=== PATIENT | female | born 1960 | race Caucasian/White ===

== ENCOUNTER 2018-01-28 14:49 | Inpatient (IN) | payer OTHER ==
[2018-01-28 16:45] LABS: Absolute Lymphocytes (CBC) 1.9 K/uL (0.7-4.9); Absolute Monocytes 0.7 K/uL (0.1-1.3); Absolute Neutrophil 3.5 K/uL (1.8-8.0); Albumin 3.5 g/dL (3.4-5.0); Basophils % 0.5 % (0-1.3); Bilirubin Total 0.3 mg/dL (0.2-1.0); Eosinophils % 5.2 % (0-4.4); Hematocrit 39.2 % (36.0-45.0); Lymphocytes % 28.9 % (15.3-44.8); MCH 30.7 pg (27.0-35.0); MCV 93.2 fL (80-100); MPV 8.5 fL (7.6-11.3); Monocytes % 11.4 % (3.3-12.3); Potassium 3.9 mmol/L (3.5-5.1); Protein, Total 8.4 g/dL (6.4-8.2); RBC Red Blood Cell Count 4.21 M/uL (3.86-4.86)
[2018-01-28 17:16] VITALS: BMI 75.5
[2018-01-28] MEDS ORDERED: PNEUMOCOCCAL VACCINE 0.5 ML IMVAC ONE (18:00)
[2018-01-28 18:52] LABS: Urine Appearance CLEAR; Urine Blood NEGATIVE (NEG); Urine Color DK YELLOW; Urine Glucose NEGATIVE (NEG); Urine Protein TRACE (NEG); Urine Specific Gravity >=1.030 (1.005-1.030); Urine pH 5.5 (5.0-7.0)
[2018-01-28] MEDS: VANCOMYCIN 2 GM in NA CHLORIDE 0.9% 500 ML IVPB SCH (18:52)
[2018-01-28 19:09] LABS: Urine Bilirubin NEG (NEG); Urine Microscopic Reflex ORDER UMIC
[2018-01-28 19:13] LABS: Urine Amorphous Sediment 1+ /HPF (NONE SEEN); Urine Bacteria <20 /HPF (<20); Urine Culture Reflex Order NOT NEEDED; Urine RBC <5 /HPF (NONE SEEN)
[2018-01-28] MEDS: ENOXAPARIN 30 MG/0.3 ML SQ SCH (21:31)
[2018-01-29] MEDS ORDERED: HYDROCODONE/APAP 5/325 MG TAB PO PRN (07:11)
[2018-01-29] MEDS: ENOXAPARIN 30 MG/0.3 ML SQ SCH (08:05)
[2018-01-29] MEDS: DILTIAZEM HCL 120 MG SR CAP PO SCH (08:05)
[2018-01-29] MEDS: HYDROCODONE/APAP 5/325 MG TAB PO PRN ×2 (08:06→17:31)
[2018-01-29] MEDS: FLUOXETINE 20 MG CAP PO SCH (08:12)
[2018-01-29] MEDS ORDERED: DILTIAZEM HCL 240 MG PO SCH (09:00)
[2018-01-29] MEDS: VANCOMYCIN 2 GM in NA CHLORIDE 0.9% 500 ML IVPB SCH (17:31)
--- NOTE | 2018-01-29 22:58 | HP ---
Date of Admission: 01/28/2018 Chief Complaint: Pain, redness right leg. History Of Present Illness: A 57-year-old female who has longstanding bilateral lymphedema and multi ple admissions for her cellulitis. Had increased pain in the leg for which she took antibiotic, cevallos eulogio because of worsening of pain she was brought to the office when she was found to have extensive c ellulitis of the right leg. The patient is admitted for IV vancomycin therapy in view of her failure to respond to oral antibiotics. Past Medical History: Positive for chronic lymphedema of bilateral legs, hypertension, depression, o steoarthritis. Family History: Diabetes present. Personal History: Nonsmoker. Home Medicines: Please refer to the chart. Review of Systems: The patient denied any chest pain or shortness of breath. Physical Examination: General: Revealed a 57-year-old female. Vital Signs: Normal. HEENT: Negative. Neck: Supple. JVD negative. Chest: Clear. Heart: Regular. Abdomen: Pendulous, nontender. Extremities: Diffuse redness starting from lower thigh to the ankle with the skin folds. There is no vesiculation. There is no drainage. Laboratory Data: White count normal. Assessment: 1.Cellulitis, not responding to oral antibiotics. 2.Chronic lymphedema. 3.Hypertension. 4.Depression. 5.Osteoarthritis. Plan: IV vancomycin, Lovenox. LOVE/ISAAC Voice ID: [id number]
[2018-01-30] MEDS: DILTIAZEM HCL 120 MG SR CAP PO SCH (08:47)
[2018-01-30] MEDS: FLUOXETINE 20 MG CAP PO SCH (08:48)
[2018-01-30] MEDS: ENOXAPARIN 30 MG/0.3 ML SQ SCH (08:48)
[2018-01-30] MEDS: HYDROCODONE/APAP 5/325 MG TAB PO PRN ×2 (11:08→23:41)
[2018-01-30] MEDS: VANCOMYCIN 2 GM in NA CHLORIDE 0.9% 500 ML IVPB SCH (17:05)
[2018-01-31] MEDS: DILTIAZEM HCL 120 MG SR CAP PO SCH (08:07)
[2018-01-31] MEDS: FLUOXETINE 20 MG CAP PO SCH (08:08)
[2018-01-31] MEDS: ENOXAPARIN 30 MG/0.3 ML SQ SCH (08:08)
[2018-01-31] MEDS: HYDROCODONE/APAP 5/325 MG TAB PO PRN ×2 (11:57→18:21)
[2018-01-31] MEDS: VANCOMYCIN 2 GM in NA CHLORIDE 0.9% 500 ML IVPB SCH ×2 (18:20→19:00)
--- NOTE | 2018-01-31 18:57 | PN ---
Date of Progress Note: 01/30/2018 The patient is afebrile. There is still significant erythema and tenderness of the leg. The patient , however, is afebrile. The patient will be continued on the same line of management. LOVE/ISAAC Voice ID: [id number] Report ID: [id number]
--- NOTE | 2018-01-31 23:30 | PN ---
The patient's leg still looks red; however, she is afebrile. I asked her to ambulate and elevate the leg in addition to the IV antibiotic therapy. The patient's blood cultures are negative. She has s ome growth in the urine; however, she does not have any symptoms, so she would not be getting treated . LOVE/ISAAC Voice ID: [id number] Report ID: [id number]
[2018-02-01] MEDS: HYDROCODONE/APAP 5/325 MG TAB PO PRN ×2 (05:41→16:24)
[2018-02-01] MEDS: ENOXAPARIN 30 MG/0.3 ML SQ SCH (09:46)
[2018-02-01] MEDS: FLUOXETINE 20 MG CAP PO SCH (09:46)
[2018-02-01] MEDS: DILTIAZEM HCL 120 MG SR CAP PO SCH (09:46)
[2018-02-01] MEDS: VANCOMYCIN 2 GM in NA CHLORIDE 0.9% 500 ML IVPB SCH (12:30)
--- NOTE | 2018-02-01 22:55 | RAD REPORT ---
EXAM DESCRIPTION: RAD - Chest Single View - 02/01/2018 10:48 pm CLINICAL HISTORY: PICC Placement COMPARISON: No comparisonsNo comparisons FINDINGS: Portable chest was obtained following placement of a right upper extremity PICC line. The catheter tip projects over the SVC..
[2018-02-02 01:27] VITALS: O2SAT 95
--- NOTE | 2018-02-02 02:40 | PN ---
The patient's leg still looks red and very likely the patient is going to need prolonged IV antibioti c course. This was explained to the patient. I already had consultation with the social scientist to a rrange for outpatient IV antibiotic and a PICC line. As soon as these are done, she will be discharg ed for outpatient IV antibiotic therapy. LOVE/ISAAC Voice ID: [id number] Report ID: [id number]
[2018-02-02] MEDS: VANCOMYCIN 2 GM in NA CHLORIDE 0.9% 500 ML IVPB SCH (05:24)
[2018-02-02] MEDS: FLUOXETINE 20 MG CAP PO SCH (08:58)
[2018-02-02] MEDS: DILTIAZEM HCL 120 MG SR CAP PO SCH (08:58)
[2018-02-02] MEDS: ENOXAPARIN 30 MG/0.3 ML SQ SCH (08:59)
[2018-02-02] MEDS: HYDROCODONE/APAP 5/325 MG TAB PO PRN (10:28)
[2018-02-03] MEDS: VANCOMYCIN 2 GM in NA CHLORIDE 0.9% 500 ML IVPB SCH (00:32)
[2018-02-03] MEDS: DILTIAZEM HCL 120 MG SR CAP PO SCH (08:51)
[2018-02-03] MEDS: FLUOXETINE 20 MG CAP PO SCH (08:52)
[2018-02-03] MEDS: ENOXAPARIN 30 MG/0.3 ML SQ SCH (08:52)
[2018-02-03 08:53] VITALS: BP 149/73
[2018-02-03 08:58] VITALS: TEMP 98.6
[2018-02-03] MEDS ORDERED: VANCOMYCIN 2.25 GM in NA CHLORIDE 0.9% 500 ML IVPB SCH (18:00)
--- NOTE | 2018-03-07 19:23 | DS ---
Date of Discharge: 02/03/2018 Final Diagnoses: 1.Cellulitis, right leg. 2.Chronic lymphedema. 3.Hypertension. 4.Depression. 5.Osteoarthritis. Hospital Course: This patient was admitted because of failure of oral antibiotic for cellulitis of t he right leg. The patient is known to have recurrent cellulitis due to her lymphedema. The patient after admission was started on vancomycin and Lovenox and she showed improvement over the next severa l days with decreased swelling, redness and pain. She was discharged on oral antibiotic on 8 to have outpatient followup. Laboratory Data: Please refer to the chart. LOVE/ISAAC Voice ID: [id number] Report ID: [id number]
== END 2018-02-03 11:43 | disposition home health service (06) | DRG 603 ==
LOC: 2ND 15:04
PROVIDERS: ADMIT Internal Medicine; ATTEND Internal Medicine
PROC: 02HV33Z Insertion of Infusion Device into Superior Vena Cava, Percutaneous Approach (ICD-10-PCS; principal; 2018-02-01)
DX: L03.115 Cellulitis of right lower limb (principal); I89.0 Lymphedema, not elsewhere classified; I10 Essential (primary) hypertension; F32.9 Major depressive disorder, single episode, unspecified; M19.90 Unspecified osteoarthritis, unspecified site; Z23 Encounter for immunization
CPT/HCPCS: 36415; 71045; 80053; 80202; 81003; 81015; 85025; 87040; 87077; 87086; 87088; 87186; 87205; 90670; J1650

== ENCOUNTER 2018-10-11 09:59 | Inpatient (IN) | payer OTHER ==
[2018-10-11] MEDS ORDERED: VANCOMYCIN 2 GM in NA CHLORIDE 0.9% 500 ML IVPB SCH (11:00)
[2018-10-11 11:07] LABS: Absolute Lymphocytes (CBC) 1.8 K/uL (0.7-4.9); Absolute Monocytes 0.5 K/uL (0.1-1.3); Absolute Neutrophil 3.5 K/uL (1.8-8.0); Basophils % 0.5 % (0-1.3); Eosinophils % 5.9 % (0-4.4); Hematocrit 42.5 % (36.0-45.0); MPV 8.3 fL (7.6-11.3); Monocytes % 7.4 % (3.3-12.3); RBC Red Blood Cell Count 4.59 M/uL (3.86-4.86)
[2018-10-11 11:24] LABS: Albumin 3.8 g/dL (3.4-5.0); Bilirubin Total 0.3 mg/dL (0.2-1.0); Potassium 3.8 mmol/L (3.5-5.1)
[2018-10-11 12:08] LABS: Urine Appearance CLEAR; Urine Blood NEGATIVE (NEG); Urine Color DK YELLOW; Urine Glucose NEGATIVE (NEG); Urine Protein 1+ (NEG); Urine Specific Gravity >=1.030 (1.005-1.030); Urine pH 5.5 (5.0-7.0)
[2018-10-11 12:12] LABS: Urine Bilirubin 1+ (NEG); Urine Microscopic Reflex ORDER UMIC
[2018-10-11 12:26] LABS: Urine Bacteria <20 /HPF (<20); Urine Culture Reflex Order NOT NEEDED; Urine Mucus HEAVY /HPF (NONE SEEN); Urine RBC <5 /HPF (NONE SEEN)
[2018-10-11 12:27] LABS: Calcium Oxalate Crystals- Ur MANY (NONE SEEN)
[2018-10-11] MEDS ORDERED: INFLUENZA VACCINE (for 3y+) 0.5 ML DOSE IMVAC ONE (14:00)
[2018-10-11] MEDS: ENOXAPARIN 40 MG/0.4 ML SQ SCH (16:30)
[2018-10-12] MEDS: VANCOMYCIN 2 GM in NA CHLORIDE 0.9% 500 ML IVPB SCH ×2 (05:22→22:22)
--- NOTE | 2018-10-12 05:28 | HP ---
Date of Admission: 10/11/2018 Chief Complaint: Fever, redness, swelling, right leg. History Of Present Illness: A 58-year-old female, who is known to have severe bilateral lymphedema, who had multiple episodes of cellulitis, was brought to the office as her oral antibiotics, in the fo rm of doxycycline and clindamycin, were not helping. She was found to have extensive cellulitis of t he right leg with lymphedema. The patient is admitted for IV antibiotic therapy. Past Medical History: Positive for depression, osteoarthritis, and hypertension. Family History: Diabetes present. Personal History: Nonsmoker. Allergies: NO KNOWN ALLERGIES. Home Medicines: Cardizem, Mobic, Prozac, doxycycline, and clindamycin. Review of Systems: The patient denied any chest pain or shortness of breath. Physical Examination: Vital Signs: Revealed a 58-year-old female with normal vital signs. HEENT: Negative. Neck: Supple. JVD negative. Chest: Clear. Heart: Regular. Abdomen: Pendulous, nontender. Extremities: Bilateral lymphedema noted. There is induration and redness of the right upper leg as well as lower thigh. Range of motion of knee is normal. Assessment: 1.Cellulitis, not responding to oral antibiotics. 2.Hypertension. 3.Osteoarthritis. 4.Lymphedema. 5.Depression. Plan: The patient is started on vancomycin. Her home medications, Prozac and Cardizem given. She i s given DVT prophylaxis with Lovenox. LOVE/ISAAC Voice ID: [id number]
[2018-10-12] MEDS: FLUOXETINE 20 MG CAP PO SCH (08:37)
[2018-10-12] MEDS: DILTIAZEM HCL 120 MG SR CAP PO SCH (08:38)
[2018-10-12] MEDS: ENOXAPARIN 40 MG/0.4 ML SQ SCH (16:50)
--- NOTE | 2018-10-12 21:54 | PN ---
The patient is doing slightly better today. She is afebrile. She still has considerable induration and redness of the right thigh and right leg. In view of response, she will be continued on vancomyc in. LOVE/ISAAC Voice ID: [id number] Report ID: [id number]
[2018-10-13] MEDS: DILTIAZEM HCL 120 MG SR CAP PO SCH (08:17)
[2018-10-13] MEDS: FLUOXETINE 20 MG CAP PO SCH (08:17)
[2018-10-13] MEDS: ENOXAPARIN 40 MG/0.4 ML SQ SCH (17:12)
[2018-10-13] MEDS: VANCOMYCIN 2 GM in NA CHLORIDE 0.9% 500 ML IVPB SCH (17:12)
[2018-10-14] MEDS: FLUOXETINE 20 MG CAP PO SCH (08:22)
[2018-10-14] MEDS: DILTIAZEM HCL 120 MG SR CAP PO SCH (08:22)
[2018-10-14] MEDS: VANCOMYCIN 2 GM in NA CHLORIDE 0.9% 500 ML IVPB SCH (11:09)
[2018-10-14 11:39] VITALS: O2SAT 98
[2018-10-14] MEDS: ENOXAPARIN 40 MG/0.4 ML SQ SCH (17:26)
[2018-10-15 05:18] VITALS: BMI 66.8
[2018-10-15] MEDS: VANCOMYCIN 2 GM in NA CHLORIDE 0.9% 500 ML IVPB SCH (05:38)
[2018-10-15] MEDS: DILTIAZEM HCL 120 MG SR CAP PO SCH (09:38)
[2018-10-15] MEDS: FLUOXETINE 20 MG CAP PO SCH (09:38)
[2018-10-15 12:21] VITALS: BP 160/60; TEMP 97.4
--- NOTE | 2018-11-08 03:40 | DS ---
Date of Discharge: 10/15/2018 Final Diagnoses: 1.Cellulitis right leg, not responding to oral antibiotics. 2.Hypertension. 3.Lymphedema. 4.Osteoarthritis. 5.Depression. Hospital Course: A 58-year-old female who was on oral antibiotics for her cellulitis and lymphedema. The patient however was not improving. At this point, the patient was admitted for IV antibiotic t herapy. After admission, the patient received IV vancomycin. She showed improvement over the next 3 days with decreased swelling, redness and induration. The patient was discharged on 10/15 to contin ue oral antibiotics. While she was in the hospital, she was given her regular medications of Prozac and Cardizem. She rec eived Lovenox for DVT prophylaxis. LOVE/ISAAC Voice ID: [id number] Report ID: [id number]
== END 2018-10-15 12:40 | disposition home or self-care (01) | DRG 603 ==
LOC: 4TH 10:06
PROVIDERS: ADMIT Internal Medicine; ATTEND Internal Medicine
DX: L03.115 Cellulitis of right lower limb (principal); I89.0 Lymphedema, not elsewhere classified; I10 Essential (primary) hypertension; M19.90 Unspecified osteoarthritis, unspecified site; F32.9 Major depressive disorder, single episode, unspecified
CPT/HCPCS: 36415; 80053; 80202; 81003; 81015; 85025; 87040; 87086; 87088; J1650

== ENCOUNTER 2019-04-19 10:26 | Inpatient (IN) | payer OTHER ==
[2019-04-19 12:36] VITALS: BMI 74.2
[2019-04-19 12:56] LABS: Absolute Lymphocytes (CBC) 1.8 K/uL (0.7-4.9); Basophils % 0.6 % (0-1.3); Hematocrit 38.6 % (36.0-45.0); Lymphocytes % 30.8 % (15.3-44.8); MPV 8.4 fL (7.6-11.3); RBC Red Blood Cell Count 4.19 M/uL (3.86-4.86)
[2019-04-19 13:18] LABS: Albumin 3.7 g/dL (3.4-5.0); Bilirubin Total 0.3 mg/dL (0.2-1.0); Potassium 4.4 mmol/L (3.5-5.1); Protein, Total 8.5 g/dL (6.4-8.2)
[2019-04-19 13:22] LABS: Urine Appearance CLOUDY; Urine Blood NEGATIVE (NEG); Urine Color DK YELLOW; Urine Glucose NEGATIVE (NEG); Urine Protein TRACE (NEG); Urine Specific Gravity >=1.030 (1.005-1.030); Urine Urobilinogen 0.2 mg/dL (0.2-1.0); Urine pH 5.5 (5.0-7.0)
[2019-04-19 13:26] LABS: Urine Bilirubin 1+ (NEG); Urine Microscopic Reflex ORDER UMIC
[2019-04-19 13:47] LABS: Urine Bacteria <20 /HPF (<20); Urine Culture Reflex Order NOT NEEDED; Urine Mucus MOD /HPF (NONE SEEN); Urine RBC NONE SEEN /HPF (NONE SEEN)
[2019-04-19] MEDS ORDERED: VANCOMYCIN 2 GM in NA CHLORIDE 0.9% 500 ML IVPB SCH (14:00)
--- NOTE | 2019-04-19 17:10 | RAD REPORT ---
EXAM DESCRIPTION: RAD - Chest Single View - 04/19/2019 5:02 pm CLINICAL HISTORY: Picc line placement COMPARISON: Chest Single View dated 03/10/2019; Chest Single View dated 02/23/2019; Chest Single View dated 02/22/2019; Chest Single View dated 12/19/2018Chest Single View dated 02/01/2018Chest Single View d ated 02/01/2018 FINDINGS: Portable chest was obtained following placement of a right upper extremity PICC line. The catheter tip projects over the SVC..
[2019-04-19] MEDS: VANCOMYCIN 2 GM in NA CHLORIDE 0.9% 500 ML IVPB SCH (17:27)
[2019-04-19] MEDS: ENOXAPARIN 30 MG/0.3 ML SQ SCH (17:36)
[2019-04-19] MEDS ORDERED: ALBUTEROL SULFATE NEB PRN (19:38)
--- NOTE | 2019-04-19 21:50 | HP ---
Date of Admission: 04/19/2019 Chief Complaint: Pain, right leg. History Of Present Illness: A 58-year-old female who is known to have severe bilateral lymphedema an d multiple episodes of cellulitis, had evidence of cellulitis. She tried antibiotic by mouth for a w [place]. However, because of lack of improvement, she was brought to the office. In view of failure of oral antibiotic, patient is admitted for IV antibiotic therapy with vancomycin. There is no history of chest pain or shortness of breath. Past Medical History: Positive for bilateral lymphedema, hypertension, depression, osteoarthritis. Family History: Diabetes, hypertension. Personal History: Nonsmoker. Home Medications: Please refer to the chart. Review of Systems: No history of chest pain or shortness of breath. Physical Examination: General: Revealed a 58-year-old female, morbidly obese. Vital Signs: Normal. HEENT: Negative. Neck: Supple. JVD negative. Chest: Clear. Heart: Regular. Abdomen: Pendulous. Extremities: Bilateral lymphedema. There is a large area of redness involving the posterior thigh a nd calf area. There is no vesiculation or lymphangitis. Assessment: 1.Cellulitis, right leg. 2.Bilateral lymphedema. 3.Hypertension. 4.Depression. Plan: IV vancomycin. Restart home medicines. LOVE/ISAAC Voice ID: [id number]
[2019-04-20] MEDS: DILTIAZEM HCL 180 MG SR CAP PO SCH (10:24)
[2019-04-20] MEDS: FLUOXETINE 20 MG CAP PO SCH (10:24)
[2019-04-20] MEDS: VANCOMYCIN 2 GM in NA CHLORIDE 0.9% 500 ML IVPB SCH (14:04)
[2019-04-20 14:38] VITALS: O2SAT 100
[2019-04-20] MEDS: ENOXAPARIN 30 MG/0.3 ML SQ SCH (17:38)
[2019-04-21] MEDS: DILTIAZEM HCL 180 MG SR CAP PO SCH (08:54)
[2019-04-21] MEDS: FLUOXETINE 20 MG CAP PO SCH (08:54)
--- NOTE | 2019-04-21 13:10 | PN ---
Subjective: Patient's leg looks a little bit better. She is afebrile. She is still unable to walk in the room because of throbbing sensation. The patient will be continued on IV vancomycin. LOVE/ISAAC Voice ID: [id number] Report ID: [id number]
[2019-04-21] MEDS: VANCOMYCIN 2 GM in NA CHLORIDE 0.9% 500 ML IVPB SCH (14:29)
[2019-04-21] MEDS: ENOXAPARIN 30 MG/0.3 ML SQ SCH (17:20)
[2019-04-22] MEDS ORDERED: VANCOMYCIN 2 GM in NA CHLORIDE 0.9% 500 ML IVPB SCH (08:00)
[2019-04-22] MEDS: DILTIAZEM HCL 180 MG SR CAP PO SCH (09:06)
[2019-04-22] MEDS: FLUOXETINE 20 MG CAP PO SCH (09:06)
[2019-04-22] MEDS: ENOXAPARIN 30 MG/0.3 ML SQ SCH (15:55)
[2019-04-22 16:25] VITALS: BP 145/61; TEMP 98
--- NOTE | 2019-04-25 05:01 | DS ---
Date of Discharge: 04/22/2019 Final Diagnoses: 1.Cellulitis, right leg. 2.Chronic lymphedema bilateral. 3.Hypertension. 4.Depression. Hospital Course: This patient has severe chronic bilateral lymphedema. She has recurrent cellulitis . Patient tried oral antibiotic in the form of Bactrim and clindamycin for a week, however, there wa s no improvement and she was brought to the office. At this point because of failure of oral antibio tic, she was started on vancomycin and she was given her regular medication as well as Lovenox. Juliane ent showed improvement over the next 3 days with decreased swelling and redness. She was discharged home to have oral antibiotics administered. Laboratory Data: White count was normal. Blood cultures; no growth. LOVE/ISAAC Voice ID: [id number] Report ID: [id number]
== END 2019-04-22 16:39 | disposition home or self-care (01) | DRG 603 ==
LOC: 4TH 11:37
PROVIDERS: ADMIT Internal Medicine; ATTEND Internal Medicine
PROC: 02HV33Z Insertion of Infusion Device into Superior Vena Cava, Percutaneous Approach (ICD-10-PCS; principal; 2019-04-19)
DX: L03.115 Cellulitis of right lower limb (principal); I89.0 Lymphedema, not elsewhere classified; I10 Essential (primary) hypertension; F32.9 Major depressive disorder, single episode, unspecified
CPT/HCPCS: 36415; 71045; 80053; 80202; 81001; 81003; 81015; 82565; 85025; 87040; 87086; 87088; J1650

== ENCOUNTER 2019-07-26 17:49 | Emergency (ER) | payer OTHER ==
[2019-07-26] MEDS ORDERED: FENTANYL CITR 100 MCG/2 ML ONE ×2 (18:59→21:23)
[2019-07-26] MEDS ORDERED: KETOROLAC 30 MG/ML INJ ONE (18:59)
--- NOTE | 2019-07-26 21:19 | ER ---
Nurse's Notes [facility] Name: Gisella Low Age: 59 yrs Sex: Female : 1960 Arrival Date: 07/26/2019 Time: 17:51 Bed 16 Private MD: Tavo Ruiz R Diagnosis: Pain in left leg;Urinary tract infection, site not specified Presentation: 07/26 18:02 Presenting complaint: Patient states: "I have lymphedema in both of my legs. I have aj1 severe pain in my left leg. I've taken tramadol, hydrocodone, Tylenol and none of its helping" Patient denies any recent injury to the left leg. Transition of care: patient was not received from another setting of care. Onset of symptoms was July 26, 2019. Risk Assessment: Do you want to hurt yourself or someone else? Patient reports no desire to harm self or others. Initial Sepsis Screen: Does the patient meet any 2 criteria? No. Patient's initial sepsis screen is negative. Does the patient have a suspected source of infection? No. Patient's initial sepsis screen is negative. Care prior to arrival: None. 18:02 Method Of Arrival: Wheelchair aj1 18:02 Acuity: JOVANY 3 aj1 Triage Assessment: 18:05 General: Appears in no apparent distress. uncomfortable, Behavior is calm, cooperative, aj1 appropriate for age. Pain:. Pain: Complains of pain in left leg Pain currently is 6 out of 10 on a pain scale. Neuro: Level of Consciousness is awake, alert, obeys commands. Cardiovascular: Patient's skin is warm and dry. Respiratory: Airway is patent Respiratory effort is even, unlabored, Respiratory pattern is regular, symmetrical. Historical: - Allergies: 18:05 No Known Allergies; aj1 - Home Meds: 18:05 Cardizem CD 360 mg Oral cp24 1 cap once daily [Active]; Mobic 7.5 mg oral tab 1 tab aj1 once daily [Active]; Prozac 20 mg Oral cap 1 cap once daily [Active]; - PMHx: 18:05 Hypertension; lymphedema; aj1 - PSHx: 18:05 Tonsillectomy; Cholecystectomy; aj1 - Immunization history:: Flu vaccine is not up to date. - Social history:: Smoking status: Patient/guardian denies using tobacco. - Ebola Screening: : Patient denies travel to an Ebola-affected area in the 21 days before illness onset. Screenin:50 Abuse screen: Denies threats or abuse. Nutritional screening: No deficits noted. em Tuberculosis screening: No symptoms or risk factors identified. Fall Risk None identified. Assessment: 18:55 General: Appears in no apparent distress. comfortable, Behavior is calm, cooperative, em Denies fever. Pain: Complains of pain in left knee Pain radiates to left sanchez Pain currently is 4 out of 10 on a pain scale. Neuro: Level of Consciousness is awake, alert, obeys commands, Oriented to person, place, time, situation, Appropriate for age. Cardiovascular: Capillary refill < 3 seconds Patient's skin is warm and dry. Respiratory: Airway is patent Respiratory effort is even, unlabored, Respiratory pattern is regular, symmetrical. Derm: Skin is intact, Skin is dry, Skin is pink, Skin temperature is warm. Musculoskeletal: Range of motion: intact in all extremities, Swelling present in right leg and left leg. 19:22 General: Appears in no apparent distress. uncomfortable, Behavior is calm, cooperative, jd3 appropriate for age. Pain: Complains of pain in left leg Quality of pain is described as aching. Neuro: Level of Consciousness is awake, alert, obeys commands, Oriented to person, place, time, situation. Cardiovascular: Capillary refill < 3 seconds Patient's skin is warm and dry. Respiratory: Airway is patent Respiratory effort is even, unlabored, Respiratory pattern is regular, symmetrical. GI: No signs and/or symptoms were reported involving the gastrointestinal system. : No signs and/or symptoms were reported regarding the genitourinary system. EENT: No signs and/or symptoms were reported regarding the EENT system. Derm: Skin is intact, Skin is dry, Skin is normal, Skin temperature is warm. Musculoskeletal: Circulation, motion, and sensation intact. Range of motion: limited in left leg Swelling present in right leg and left leg. 20:49 Reassessment: Patient appears in no apparent distress at this time. Patient and/or jd3 family updated on plan of care and expected duration. Pain level reassessed. Patient is alert, oriented x 3, equal unlabored respirations, skin warm/dry/pink. assisted to restroom. pt reporting some relief from pain medication. 21:50 Reassessment: Patient appears in no apparent distress at this time. Patient and/or jd3 family updated on plan of care and expected duration. Pain level reassessed. Patient is alert, oriented x 3, equal unlabored respirations, skin warm/dry/pink. reported understanding of discharge instructions. Vital Signs: 18:05 BP 142 / 75; Pulse 68; Resp 18; Temp 97.2; Pulse Ox 96% on R/A; Weight 198.22 kg (R); aj1 Height 5 ft. 6 in. (167.64 cm) (R); 20:50 Pulse 69; Resp 18 S; Pulse Ox 97% on R/A; jd3 18:05 Body Mass Index 70.53 (198.22 kg, 167.64 cm) aj1 ED Course: 17:51 Patient arrived in ED. rg4 17:51 Tavo Ruiz MD is Private Physician. rg4 18:00 [facility] snw 18:00 Angel Bolton MD is Attending Physician. snw 18:03 Triage completed. aj1 18:05 Arm band placed on Patient placed in waiting room, Patient notified of wait time. aj1 18:41 Deepak Clark LVN is Primary Nurse. em 18:50 Patient has correct armband on for positive identification. Bed in low position. Call em light in reach. Side rails up X2. Adult w/ patient. 19:21 Primary Nurse role handed off by Deepak Clark LVN jd3 19:21 Campos Sharma RN is Primary Nurse. jd3 21:02 US Extremity Venous W Compression Gagan In Process Unspecified. EDMS 21:17 Tavo Ruiz MD is Referral Physician. snw 21:51 No provider procedures requiring assistance completed. Patient did not have IV access jd3 during this emergency room visit. Administered Medications: 19:02 Drug: TORadol 30 mg Route: IM; Site: left deltoid; em 19:30 Follow up: Response: No adverse reaction jd3 21:34 Drug: fentaNYL (PF) 50 mcg Route: IM; Site: right deltoid; jd3 21:50 Follow up: Response: Medication administered at discharge.; RASS: Alert and Calm (0) jd3 21:34 Not Given (Patient Refused; pt reported having an allergy): Doxycycline 100 mg PO once jd3 21:34 Drug: Clindamycin 300 mg Route: PO; jd3 21:49 Follow up: Response: Medication administered at discharge. jd3 Outcome: 21:18 Discharge ordered by . emmanuel 21:51 Discharged to home via wheelchair, with family. jd3 21:51 Condition: stable 21:51 Discharge instructions given to patient, family, Instructed on discharge instructions, follow up and referral plans. medication usage, Demonstrated understanding of instructions, follow-up care, medications, Prescriptions given X 2. 21:52 Patient left the ED. jd3 Addendum: 07/30/2019 07:38 Addendum: Culture Results: Positive urine culture. Bacteria is resistant to, has s s intermediate sensitivity, or is not tested against prescribed antibiotics. Report given to KAI for further evaluation and then to zookeeper for follow up with patient. 08/02/2019 16:00 Addendum: Culture Results: Phone call Attempt #1 pt did not answer, left voice mail. i w Signatures: Dispatcher [employer] María Pollard RN RN aj1 Magali Borjas, HARM REDUCTION WORKER-C HARM REDUCTION WORKER-[employer] Deepak Clark RN RN Denia Mariano RN RN Jody Valladares RN RN ss Garcia, Rubi rg4 Davies, Jonathon, RN RN jd3 Corrections: (The following items were deleted from the chart) 07/26 20:51 19:22 Musculoskeletal: Circulation, motion, and sensation intact. Range of motion: jd3 limited in left leg Swelling present in left leg jd3 21:50 21:49 Response: Medication administered at discharge. jd3 jd3
--- NOTE | 2019-07-26 21:19 | EDPHYS ---
Physician Documentation [facility] Name: Gisella Low Age: 59 yrs Sex: Female : 1960 Arrival Date: 07/26/2019 Time: 17:51 Bed 16 Private MD: Tavo Ruiz R ED Physician Angel Bolton HPI: 07/26 21:26 This 59 yrs old Female presents to ER via Wheelchair with complaints of Leg snw Pain. 21:26 The patient presents with pain, that is acute. The complaints affect the from left knee snw down to foot, pt states it does not feel like her neuropathy or her osteoarthritis. Context: The problem was sustained at home, resulted from an unknown cause, the patient can partially bear weight, can ambulate using a cane. Onset: The symptoms/episode began/occurred suddenly, 2 day(s) ago, and became persistent. Associated signs and symptoms: The patient has no apparent associated signs or symptoms. Treatment prior to arrival includes: as noted. Severity of symptoms: At their worst the symptoms were severe, in the emergency department the symptoms have improved, moderately. The patient has experienced similar episodes in the past, chronically. The patient has been recently seen by a physician: the patient's primary care provider, Dr. Ruiz. Historical: - Allergies: 18:05 No Known Allergies; aj1 - Home Meds: 18:05 Cardizem CD 360 mg Oral cp24 1 cap once daily [Active]; Mobic 7.5 mg oral tab 1 tab aj1 once daily [Active]; Prozac 20 mg Oral cap 1 cap once daily [Active]; - PMHx: 18:05 Hypertension; lymphedema; aj1 - PSHx: 18:05 Tonsillectomy; Cholecystectomy; aj1 - Immunization history:: Flu vaccine is not up to date. - Social history:: Smoking status: Patient/guardian denies using tobacco. - Ebola Screening: : Patient denies travel to an Ebola-affected area in the 21 days before illness onset. ROS: 21:22 Constitutional: Negative for fever, chills, and weight loss, Eyes: Negative for injury, snw pain, redness, and discharge, ENT: Negative for injury, pain, and discharge, Neck: Negative for injury, pain, and swelling, Cardiovascular: Negative for chest pain, palpitations, and edema, Respiratory: Negative for shortness of breath, cough, wheezing, and pleuritic chest pain, Abdomen/GI: Negative for abdominal pain, nausea, vomiting, diarrhea, and constipation, Back: Negative for injury and pain, Skin: Negative for injury, rash, and discoloration, Neuro: Negative for headache, weakness, numbness, tingling, and seizure. 21:22 : Positive for burning with urination, frequent uti, has taken one week Cipro, s/s improved for a short time, pt started course of Bactrim. Almost finished it and developed diarrhea and left leg pain. Pt states she gets cellulitis about every 6 weeks. Last episode in May. Will treat with Clindamycin (as pt states allergy to Doxycycline) until urine culture returns. Exam: 20:48 Constitutional: This is a well developed, well nourished patient who is awake, alert, snw and in no acute distress. Head/Face: Normocephalic, atraumatic. Eyes: Pupils equal round and reactive to light, extra-ocular motions intact. Lids and lashes normal. Conjunctiva and sclera are non-icteric and not injected. Cornea within normal limits. Periorbital areas with no swelling, redness, or edema. ENT: Nares patent. No nasal discharge, no septal abnormalities noted. Tympanic membranes are normal and external auditory canals are clear. Oropharynx with no redness, swelling, or masses, exudates, or evidence of obstruction, uvula midline. Mucous membranes moist. Neck: Trachea midline, no thyromegaly or masses palpated, and no cervical lymphadenopathy. Supple, full range of motion without nuchal rigidity, or vertebral point tenderness. No Meningismus. Chest/axilla: Normal chest wall appearance and motion. Nontender with no deformity. No lesions are appreciated. Cardiovascular: Regular rate and rhythm with a normal S1 and S2. No gallops, murmurs, or rubs. Normal PMI, no JVD. No pulse deficits. Respiratory: Lungs have equal breath sounds bilaterally, clear to auscultation and percussion. No rales, rhonchi or wheezes noted. No increased work of breathing, no retractions or nasal flaring. Abdomen/GI: Soft, non-tender, with normal bowel sounds. No distension or tympany. No guarding or rebound. No evidence of tenderness throughout. Back: No spinal tenderness. No costovertebral tenderness. Full range of motion. Skin: Warm, dry with normal turgor. Normal color with no rashes, no lesions, and no evidence of cellulitis. MS/ Extremity: Pulses equal, no cyanosis. Neurovascular intact. normal range of motion for patient. +lymphedema, no noted areas of cellulitis Neuro: Awake and alert, GCS 15, oriented to person, place, time, and situation. Cranial nerves II-XII grossly intact. Motor strength 5/5 in all extremities. Sensory grossly intact. Cerebellar exam normal. Normal gait. Psych: Awake, alert, with orientation to person, place and time. Behavior, mood, and affect are within normal limits. 20:48 Constitutional: The patient appears alert, awake, obese. Vital Signs: 18:05 BP 142 / 75; Pulse 68; Resp 18; Temp 97.2; Pulse Ox 96% on R/A; Weight 198.22 kg (R); aj1 Height 5 ft. 6 in. (167.64 cm) (R); 20:50 Pulse 69; Resp 18 S; Pulse Ox 97% on R/A; jd3 18:05 Body Mass Index 70.53 (198.22 kg, 167.64 cm) aj1 MDM: 18:36 Patient medically screened. snw 21:21 Data reviewed: vital signs, nurses notes. Data interpreted: Pulse oximetry: on room air snw is 97 %. Interpretation: normal. Counseling: I had a detailed discussion with the patient and/or guardian regarding: the historical points, exam findings, and any diagnostic results supporting the discharge/admit diagnosis, lab results, radiology results, the need for outpatient follow up, to return to the emergency department if symptoms worsen or persist or if there are any questions or concerns that arise at home. Special discussion: I have referred the patient to see his PCP for further evaluation of high blood pressure. Based on the history and exam findings, there is no indication for further emergent testing or inpatient evaluation. I discussed with the patient/guardian the need to see the primary care provider for further evaluation of the symptoms. 07/26 19:38 Order name: Urine Culture snw 07/26 19:38 Order name: Urine Microscopic Only; Complete Time: 21:28 snw 07/26 18:36 Order name: US Extremity Venous W Compression Gagan snw 07/26 21:21 Order name: Urine Dipstick--Ancillary (enter results); Complete Time: 21:28 ar5 Administered Medications: 19:02 Drug: TORadol 30 mg Route: IM; Site: left deltoid; em 19:30 Follow up: Response: No adverse reaction jd3 21:34 Drug: fentaNYL (PF) 50 mcg Route: IM; Site: right deltoid; jd3 21:50 Follow up: Response: Medication administered at discharge.; RASS: Alert and Calm (0) jd3 21:34 Not Given (Patient Refused; pt reported having an allergy): Doxycycline 100 mg PO once jd3 21:34 Drug: Clindamycin 300 mg Route: PO; jd3 21:49 Follow up: Response: Medication administered at discharge. jd3 Disposition: 07/26/19 21:18 Discharged to Home. Impression: Pain in left leg, Urinary tract infection, site not specified. - Condition is Stable. - Discharge Instructions: Hypertension, Pain Without a Known Cause, Urinary Tract Infection, Adult, Lymphedema, Rehydration, Adult, Heat Therapy. - Prescriptions for Tramadol 50 mg Oral Tablet - take 1 tablet by ORAL route every 8 hours as needed; 12 tablet. Clindamycin HCl 300 mg Oral Capsule - take 1 capsule by ORAL route every 6 hours for 10 days; 40 capsule. - Medication Reconciliation Form, Thank You Letter, Antibiotic Education, Prescription Opioid Use form. - Follow up: Tavo Ruiz MD; When: 2 - 3 days; Reason: Recheck today's complaints, Continuance of care, Re-evaluation by your physician. Follow up: Emergency Department; When: As needed; Reason: Worsening of condition. Addendum: 08/02/2019 19:04 Co-signature as Attending Physician, Angel Bolton MD. r n Signatures: Dispatcher [employer] María Pollard RN RN aj1 Magali Borjas, PROPELLER ENGINEER-C PROPELLER ENGINEER-Csnw Deepak Clark RN RN em Nieto, Roman, MD MD rn Davies, Jonathon, RN RN jd3 Corrections: (The following items were deleted from the chart) 07/26 21:52 21:18 07/26/2019 21:18 Discharged to Home. Impression: Pain in left leg; Urinary tract jd3 infection, site not specified. Condition is Stable. Forms are Medication Reconciliation Form, Thank You Letter, Antibiotic Education, Prescription Opioid Use. Follow up: Tavo Ruiz; When: 2 - 3 days; Reason: Recheck today's complaints, Continuance of care, Re-evaluation by your physician. Follow up: Emergency Department; When: As needed; Reason: Worsening of condition. snw
[2019-07-26] MEDS ORDERED: DOXYCYCLINE 100 MG CAP PO ONE (21:23)
[2019-07-26 21:24] LABS: Urine Blood NEGATIVE (NEG); Urine Glucose NEGATIVE (NEG); Urine Protein TRACE (NEG); Urine Specific Gravity >1.030 (1.005-1.030); Urine pH 5.5 (5.0-7.0)
[2019-07-26 21:25] LABS: Calcium Oxalate Crystals- Ur MODERATE (NONE SEEN); Urine Bacteria <20 /HPF (<20); Urine Culture Reflex Order NOT NEEDED; Urine Mucus 2+ /HPF (NONE SEEN); Urine RBC <5 /HPF (NONE SEEN)
[2019-07-26 22:00] VITALS: BP 142/75; TEMP 97.2
[2019-07-26 22:02] VITALS: O2SAT 97
--- NOTE | 2019-07-27 08:13 | RAD REPORT ---
EXAM DESCRIPTION: US - Extrem Venous W Compress Gagan - 07/26/2019 9:02 pm CLINICAL HISTORY: Lower extremity pain and swelling Preliminary findings were provided at time of the study. COMPARISON: None. TECHNIQUE: Real-time sonographic evaluation of the bilateral lower extremity common femoral, superfi cial femoral, popliteal and posterior tibial veins was performed. FINDINGS: Exam is considered limited due to large body habitus affects. Normal compressibility, flow augmentation, phasic flow and spontaneous flow are identified in the lef t and right lower extremity common femoral, superficial femoral, popliteal and posterior tibial veins . No intraluminal filling defects seen. Near the left posterior tibial vein a 15 millimeter irregular hypoechoic collection is present. This is nonspecific. Hematoma/seroma would be possible. A benign reactive fluid collection is possible. Gi miguel angel the internal echogenicity. Abscess or infected fluid collection not excluded. IMPRESSION: No DVT in either lower extremity. 15 millimeter hypoechoic collection near the left posterior tibial vein is present but nonspecific. T his could be a benign fluid collection with echogenic debris, old hematoma or possibly infected fluid collection.
== END 2019-07-26 21:52 | disposition home or self-care (01) ==
LOC: ER 17:49
DX: N39.0 Urinary tract infection, site not specified (principal); I10 Essential (primary) hypertension
CPT/HCPCS: 87088; 87086; 87077; 87186; 93970; 96372; 99283; J3010; 81003; 81015

== ENCOUNTER 2020-10-09 20:08 | Inpatient (IN) | payer OTHER ==
--- OUTSIDE RECORDS SUMMARY | 2020-10-09 20:12 | XMS REPORT | Continuity of Care Document ---
:1960 Author Organization [facility] t Address 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 Social History Smoking Status Start Date Stop Date Source Never Smoker [facility] Medications Ordered Filled Start Stop Current Ordering Indication Dosage Frequency Signature Comments Components Source Medication Medication Date Date Medication? Clinician (SIG) Name Name albuterol albuterol No 2puff(s Q4H albuterol [place] sulfate HFA sulfate HFA ) sulfate Family 90 90 HFA 90 Practic mcg/actuati mcg/actuati mcg/actuat e on aerosol on aerosol ion inhaler inhaler aerosol Inhale 2 Inhale 2 inhaler puffs every puffs every Inhale 2 4 hours by 4 hours by puffs inhalation inhalation every 4 route. route. hours by inhalation route. diltiazem diltiazem No 1capsul Q1D diltiazem [facility] CD 360 mg CD 360 mg e(s) CD 360 mg Family capsule,ext capsule,ext capsule,ex Practic ended ended tended e release 24 release 24 release 24 hr Take 1 hr Take 1 hr Take 1 capsule capsule capsule every day every day every day by oral by oral by oral route. route. route. Flucelvax Flucelvax No Flucelvax [facility] Quad Quad Quad [facility] Practic (PF) 60 mcg (PF) 60 mcg (PF) 60 e (15 mcg x (15 mcg x mcg (15 4)/0.5 mL 4)/0.5 mL mcg x IM syringe IM syringe 4)/0.5 mL IM syringe fluoxetine fluoxetine No 1capsul Q1D fluoxetine [facility] 20 mg 20 mg e(s) 20 mg Family capsule capsule capsule Practi c Take 1 Take 1 Take 1 e capsule capsule capsule every day every day every day by oral by oral by oral route. route. route. meloxicam meloxicam No 1 Q1D meloxicam [facility] 7.5 mg 7.5 mg 7.5 mg Family tablet Take tablet Take tablet Practic 1 tablet 1 tablet Take 1 e every day every day tablet by oral by oral every day route as route as by oral needed. needed. route as needed. tramadol 50 tramadol 50 No 1 BID tramadol [facility] mg tablet mg tablet 50 mg Fami ly Take 1 Take 1 tablet Practic tablet tablet Take 1 e twice a day twice a day tablet by oral by oral twice a route as route as day by needed. needed. oral route as needed. Immunizations Ordered Immunization Filled Immunization Date Status Commen ts Source Name Name influenza, influenza, 2019-04-13 [facility] injectable, injectable, 00:00:00 Practice quadrivalent quadrivalent pneumococcal pneumococcal 2010-04-16 [facility] rosanne polysaccharide PPV23 polysaccharide PPV23 00:00:00 Practice Vital Signs Vital Name Observation Time Observation Value Comments Source Height 2020-02-24 00:00:00 66 [in_i] [place] BMI (Body Mass 2020-02-24 00:00:00 40.4 kg/m2 [facility] Index) Practice Body Weight 2020-02-24 00:00:00 250 [lb_av] [place] Procedures This patient has no known procedures. Encounters Start End Encounter Admission Attending Care Care Encounter Source Date/Time Date/Time Type Type Clinicians Facility Department ID 2020-02-24 2020-02-24 Joel REEDER [place] - [id number] [facility] 00:00:00 00:00:00 Philippe BURGLAR ALARM ASSEMBLER: [facility] sandra [address] [facility], [email or web address] e [facility], [facility], [facility] [id number] , Ph. 2019-08-25 2019-08-25 Emergency Flash [facility] [id number] 15:43:03 18:35:00 [place] [id number] [place] [id number] [place] [id number] Results This patient has no known results.
[2020-10-09 22:18] LABS: Absolute Lymphocytes (CBC) 1.2 K/uL (0.7-4.9); Basophils % 0.7 % (0-1.3); Lymphocytes % 20.2 % (15.3-44.8); MPV 8.2 fL (7.6-11.3); RBC Red Blood Cell Count 3.79 M/uL (3.86-4.86)
[2020-10-09 22:19] LABS: Protime INR 1.14
[2020-10-09 22:29] LABS: ALT/SGPT 25 U/L (12-78); AST/SGOT 14 U/L (15-37); Albumin 2.9 g/dL (3.4-5.0); Alkaline Phosphatase 72 U/L (45-117); BUN Blood Urea Nitrogen 19 mg/dL (7-18); Bicarbonate 30 mmol/L (21-32); Bilirubin Direct < 0.1 mg/dL (0-0.2); Bilirubin Total 0.2 mg/dL (0.2-1.0); Glucose Level 116 mg/dL (74-106); Magnesium 2.2 mg/dL (1.8-2.4); Potassium 4.2 mmol/L (3.5-5.1); Protein, Total 7.6 g/dL (6.4-8.2); Sodium Level 139 mmol/L (136-145)
[2020-10-09] MEDS ORDERED: NA CHLORIDE 0.9% 100 ML ONE (23:00)
[2020-10-09] MEDS ORDERED: CEFEPIME 2 GM VIAL ONE (23:00)
[2020-10-09] MEDS ORDERED: NA CHLORIDE 0.9% 250 ML ONE (23:00)
[2020-10-09] MEDS ORDERED: VANCOMYCIN 1 GM/VIAL ONE (23:00)
--- NOTE | 2020-10-09 23:19 | EDPHYS ---
Physician Documentation [facility] Name: Gisella Low Age: 60 yrs Sex: Female : 1960 Arrival Date: 10/09/2020 Time: 20:12 Bed 14 Private MD: ED Physician Asaf Escobar HPI: 10/09 21:00 This 60 yrs old Female presents to ER via EMS with complaints of Leg Swelling.cp 21:00 The patient presents with pain, swelling, tenderness. The complaints affect the right cp lower leg. 21:00 Onset: The symptoms/episode began/occurred gradually. cp 21:00 Associated signs and symptoms: Pertinent positives: warmth, weakness, Pertinent cp negatives fever. Patient reports she has been taking prescribed Bactrim and Clindamycin for past [address] Ruiz with no improvement. Historical: - Allergies: 20:33 Doxycycline; zb - Home Meds: 20:33 Cardizem CD 360 mg Oral cp24 1 cap once daily [Active]; Mobic 7.5 mg Oral tab 1 tab zb once daily [Active]; Prozac 20 mg Oral cap 1 cap once daily [Active]; - PMHx: 20:33 Hypertension; lymphedema; zb - PSHx: 20:33 Tonsillectomy; Cholecystectomy; zb - Immunization history:: Adult Immunizations up to date. - Social history:: Smoking status: Patient denies any tobacco usage or history of. ROS: 21:05 Constitutional: Negative for body aches, chills, fever, poor PO intake. cp 21:05 Cardiovascular: Positive for edema, Negative for chest pain, palpitations. cp 21:05 Respiratory: Negative for cough, shortness of breath, wheezing. 21:05 Abdomen/GI: Negative for abdominal pain, nausea, vomiting, and diarrhea, constipation. 21:05 Back: Negative for pain at rest, pain with movement. 21:05 Skin: Positive for cellulitis, of the right lower leg. 21:05 Neuro: Negative for altered mental status, headache, weakness. 21:05 All other systems are negative. Exam: 21:10 Constitutional: The patient appears in no acute distress, alert, awake, cp non-diaphoretic, non-toxic, well developed, well nourished, morbidly obese 21:10 Head/Face: Normocephalic, atraumatic. 21:10 Eyes: Periorbital structures: appear normal, Conjunctiva: normal, no exudate, no injection, Lids and lashes: appear normal, bilaterally. 21:10 ENT: External ear(s): are unremarkable, Nose: is normal, Posterior pharynx: Airway: no evidence of obstruction, patent. 21:10 Chest/axilla: Inspection: normal, Palpation: is normal, no crepitus, no tenderness. 21:10 Cardiovascular: Rate: normal, Rhythm: regular. 21:10 Respiratory: the patient does not display signs of respiratory distress, Respirations: normal, no use of accessory muscles, no retractions, labored breathing, is not present, Breath sounds: are clear throughout, no decreased breath sounds, no stridor, no wheezing. 21:10 Abdomen/GI: Inspection: abdomen appears normal, Palpation: abdomen is soft and non-tender, in all quadrants. 21:10 Musculoskeletal/extremity: gross lymphedema noted bilateral lower legs. 21:10 Skin: cellulitis, that is moderate, on the right lower leg. 21:10 Neuro: Orientation: to person, place \\T\\ time. Mentation: is normal. 22:22 ECG was reviewed by the Attending Physician. Vital Signs: 20:15 BP 174 / 68; Pulse 72; Resp 16; Temp 98.5; Pulse Ox 100% on R/A; Weight 226.8 kg; zb Height 5 ft. 3 in. (160.02 cm); Pain 0/10; 21:30 BP 117 / 57; Pulse 72; Resp 18; Pulse Ox 99% on R/A; zb 22:30 BP 135 / 69; Pulse 73; Resp 18; Pulse Ox 98% on R/A; zb 23:30 BP 129 / 58; Pulse 70; Resp 18; Pulse Ox 100% on R/A; zb 20:15 Body Mass Index 88.57 (226.80 kg, 160.02 cm) zb MDM: 20:46 Patient medically screened. [facility] 21:00 Differential diagnosis: cellulitis, sepsis, UTI. 23:00 Data reviewed: vital signs, nurses notes, lab test result(s), EKG. 23:00 Test interpretation: by ED physician or midlevel provider: ECG. Counseling: I had a cp detailed discussion with the patient and/or guardian regarding: the historical points, exam findings, and any diagnostic results supporting the discharge/admit diagnosis, lab results, radiology results, the need for further work-up and treatment in the hospital. Physician consultation: Dalton LEAL was contacted at 23:00, regarding admission, to the medical/surgical unit. patient's condition. 10/09 20:50 Order name: Basic Metabolic Panel; Complete Time: 22:34 cp 10/09 20:50 Order name: CBC with Diff; Complete Time: 22:34 cp 10/09 20:50 Order name: LFT's; Complete Time: 22:50 cp 10/09 20:50 Order name: Magnesium; Complete Time: 22:50 cp 10/09 20:50 Order name: PT-INR; Complete Time: 22:50 cp 10/09 20:50 Order name: Procalcitonin cp 10/09 20:50 Order name: XRAY Chest (1 view) 10/09 20:50 Order name: Lactate; Complete Time: 22:50 cp 10/09 20:50 Order name: Blood Culture Adult (2) 10/09 21:01 Order name: Urine Microscopic Only 10/09 22:10 Order name: COVID-19 : Document "Date of Symptom Onset" if Symptomatic. 10/09 23:32 Order name: SARS-COV-2 RT PCR EDAR 10/09 20:50 Order name: EKG; Complete Time: 20:51 cp 10/09 20:50 Order name: Cardiac monitoring; Complete Time: 21:58 cp 10/09 20:50 Order name: EKG - Nurse/Tech; Complete Time: 22:19 cp 10/09 20:50 Order name: Labs collected and sent; Complete Time: 22:19 cp 10/09 20:50 Order name: O2 Per Protocol; Complete Time: 21:59 cp 10/09 20:50 Order name: O2 Sat Monitoring; Complete Time: 21:59 cp EC:22 Rate is 65 beats/min. Rhythm is regular. MN interval is normal. QRS interval is cp prolonged at 104 msec. QT interval is normal. T waves are Inverted in lead aVR. Interpreted by me. Reviewed by me. Administered Medications: 22:51 Drug: Cefepime 2 grams Route: IVPB; Rate: 200 ml/hr; Infused Over: 30 mins; Site: left zb forearm; 23:30 Drug: vancoMYCIN 1 grams Route: IVPB; Infused Over: 2 hrs; Site: right antecubital; zb Disposition: 10/10 00:00 Chart complete. cp 08:22 Co-signature as Attending Physician, Asaf Escobar MD I agree with the assessment and yfn plan of care. Disposition: 10/09/20 23:18 Hospitalization ordered by Henri Schneider for Inpatient Admission. Preliminary diagnosis is Cellulitis of right lower limb. - Bed requested for Telemetry/MedSurg (Inpatient). - Status is Inpatient Admission. zb - Condition is Stable. - Problem is new. - Symptoms have improved. Signatures: Dispatcher [employer] EDAR Danay Garibay RN Asaf Madera MD MD cha Attema, Lee, VENDOR MANAGER-C VENDOR MANAGER-Cla1 Asaf Vela PA PA cp Brown, Zipporah, RN RN zb Corrections: (The following items were deleted from the chart) 10/09 22:35 22:11 CORONAVIRUS ordered. EDAR EDAR 23:36 23:18 Hospitalization Ordered by Henri Schneider DO for Inpatient Admission. Preliminary dw diagnosis is Cellulitis of right lower limb. Bed requested for Telemetry/MedSurg (Inpatient). Status is Inpatient Admission. Condition is Stable. Problem is new. Symptoms have improved. cp 10/10 00:32 10/09 23:36 10/09/2020 23:18 Hospitalization Ordered by Henri Schneider DO for Inpatient zb Admission. Preliminary diagnosis is Cellulitis of right lower limb. Bed requested for Telemetry/MedSurg (Inpatient). Status is Inpatient Admission. Condition is Stable. Problem is new. Symptoms have improved. dw
--- NOTE | 2020-10-09 23:19 | ER ---
Nurse's Notes [facility] Name: Gisella Low Age: 60 yrs Sex: Female : 1960 Arrival Date: 10/09/2020 Time: 20:12 Bed 14 Private MD: Diagnosis: Cellulitis of right lower limb Presentation: 10/09 20:12 Acuity: JOVANY 3 zb 20:38 Chief complaint: EMS states: patient slide of her bed while trying to get in it. denies zb head trauma or LOC, denies pain. patient has been on abx for cellulitis. Patient states she is hear because she has been having more trouble getting around. Coronavirus screen: At this time, the client does not indicate any symptoms associated with coronavirus-19. Ebola Screen: No symptoms or risks identified at this time. Initial Sepsis Screen: Does the patient meet any 2 criteria? No. Patient's initial sepsis screen is negative. Does the patient have a suspected source of infection? No. Patient's initial sepsis screen is negative. Initial Sepsis Screen: Does the patient meet any 2 criteria? Does the patient have a suspected source of infection? Yes: Skin breakdown/wound. Risk Assessment: Do you want to hurt yourself or someone else? Patient reports no desire to harm self or others. Onset of symptoms was October 09, 2020. 20:38 Method Of Arrival: EMS: [facility] zb Triage Assessment: 20:34 General: Appears in no apparent distress. uncomfortable, Behavior is calm, cooperative, zb appropriate for age. Pain: Denies pain. EENT: No deficits noted. Neuro: Level of Consciousness is awake, alert, obeys commands, Oriented to person, place, time, situation. Cardiovascular: Denies chest pain, Capillary refill < 3 seconds Patient's skin is warm and dry. Pulses are all present. Edema is 3+ to left midcalf, left ankle, left foot, left toes, right midcalf, right ankle, right foot and right toes. Respiratory: Reports shortness of breath chronic Airway is patent Respiratory effort is even, unlabored, Respiratory pattern is regular, symmetrical, Denies cough. GI: Abdomen is obese, Bowel sounds present X 4 quads. Abd is soft and non tender X 4 quads. : No signs and/or symptoms were reported regarding the genitourinary system. Derm: Skin is intact, Skin is dry, swelling BLE legs, bilateral toe purple and cool to touch but pulse present and sensory intact. Musculoskeletal: Range of motion: intact in all extremities, Swelling present in right leg and left leg. Historical: - Allergies: 20:33 Doxycycline; zb - Home Meds: 20:33 Cardizem CD 360 mg Oral cp24 1 cap once daily [Active]; Mobic 7.5 mg Oral tab 1 tab zb once daily [Active]; Prozac 20 mg Oral cap 1 cap once daily [Active]; - PMHx: 20:33 Hypertension; lymphedema; zb - PSHx: 20:33 Tonsillectomy; Cholecystectomy; zb - Immunization history:: Adult Immunizations up to date. - Social history:: Smoking status: Patient denies any tobacco usage or history of. Screenin:42 Abuse screen: Denies threats or abuse. Denies injuries from another. Nutritional zb screening: No deficits noted. Tuberculosis screening: No symptoms or risk factors identified. Fall Risk Fall in past 12 months (25 points). Secondary diagnosis (15 points) impaired mobility, No IV (0 pts). Ambulatory Aid- Crutches/Cane/Walker (15 pts). Gait- Impaired (20 pts.). Mental Status- Oriented to own ability (0 pts). Total Kuo Fall Scale indicates High Risk Score (45 or more points). Fall prevention measures have been instituted. Side Rails Up X 2 Placed Close to Nursing Station Frequent Obs/Assessments Occuring. Assessment: 20:38 Reassessment: See triage assessment. zb 20:42 Reassessment: ECP at bedside. zb 21:35 Reassessment: patient refused to be cath. unable to receive urine sample at this time. zb notified ECP. Patient has history of incontinence. 22:00 Reassessment: Patient appears in no apparent distress at this time. Patient and/or zb family updated on plan of care and expected duration. Pain level reassessed. Patient is alert, oriented x 3, equal unlabored respirations, skin warm/dry/pink. 23:00 Reassessment: Patient appears in no apparent distress at this time. Patient and/or zb family updated on plan of care and expected duration. Pain level reassessed. Patient is alert, oriented x 3, equal unlabored respirations, skin warm/dry/pink. hospitalist at bedside. 10/10 00:07 Reassessment: Patient appears in no apparent distress at this time. Patient and/or zb family updated on plan of care and expected duration. Pain level reassessed. Patient is alert, oriented x 3, equal unlabored respirations, skin warm/dry/pink. notified patient that she will be transferred to a room shortly. Vital Signs: 10/09 20:15 BP 174 / 68; Pulse 72; Resp 16; Temp 98.5; Pulse Ox 100% on R/A; Weight 226.8 kg; zb Height 5 ft. 3 in. (160.02 cm); Pain 0/10; 21:30 BP 117 / 57; Pulse 72; Resp 18; Pulse Ox 99% on R/A; zb 22:30 BP 135 / 69; Pulse 73; Resp 18; Pulse Ox 98% on R/A; zb 23:30 BP 129 / 58; Pulse 70; Resp 18; Pulse Ox 100% on R/A; zb 20:15 Body Mass Index 88.57 (226.80 kg, 160.02 cm) zb ED Course: 20:12 Patient arrived in ED. zb 20:13 Triage completed. zb 20:28 Susanna Wagn RN is Primary Nurse. zb 20:38 Asaf Vela PA is PHCP. cp 20:38 Asaf Escobar MD is Attending Physician. cp 20:42 Patient has correct armband on for positive identification. Placed in gown. Bed in low zb position. Call light in reach. Side rails up X 1. Pulse ox on. NIBP on. 20:42 Arm band placed on. zb 22:00 EKG completed in triage. Results shown to . EKG completed in triage. Results shown to zb . 22:02 XRAY Chest (1 view) In Process Unspecified. EDMS 22:24 COVID-19 : Document "Date of Symptom Onset" if Symptomatic. Sent. zb 22:45 Inserted saline lock: 20 gauge in left forearm, using aseptic technique. rr5 23:18 Henri Schneider DO is Hospitalizing Provider. cp 10/10 00:06 No provider procedures requiring assistance completed. Patient admitted, IV remains in zb place. Administered Medications: 10/09 22:51 Drug: Cefepime 2 grams Route: IVPB; Rate: 200 ml/hr; Infused Over: 30 mins; Site: left zb forearm; 23:30 Drug: vancoMYCIN 1 grams Route: IVPB; Infused Over: 2 hrs; Site: right antecubital; zb Outcome: 23:18 Decision to Hospitalize by Provider. elke 10/10 00:06 Admitted to Med/surg accompanied by tech, room 220, on monitor, with chart, Report zb called to FATOU Lange Condition: good Instructed on the need for admit, Demonstrated understanding of instructions. 00:32 Patient left the ED. zb Signatures: [facility] Asaf Vela PA PA cp Roque, Raymond, RN RN rr5 Susanna Wang RN RN zb
[2020-10-10] MEDS ORDERED: ONDANSETRON 4 MG/2 ML VIAL IV PRN (00:42)
--- NOTE | 2020-10-10 01:01 | P.HP ---
Certification for Inpatient Patient admitted to: Inpatient With expected LOS: >2 Midnights Patient will require the following post-hospital care: None Practitioner: I am a practitioner with admitting privileges, knowledge of patient current condition, hospital course, and medical plan of care. Services: Services provided to patient in accordance with Admission requirements found in Title 42 Section 412.3 of the Code of Federal Regulations Patient History Date of Service: 10/10/20 Primary Care Provider: Dr. Ruiz Reason for admission: Cellulitis RLE History of Present Illness: 52-year-old female with history of hypertension, asthma, arthritis, depression presents emergency department for cellulitis of the right lower extremity. Patient was previously on Bactrim, clindamycin for the past 4 days with worsening of the cellulitis to the right lower extremity. Patient with severe obesity with a BMI of 80.7, severe lymphedema bilateral lower extremities. Right lower extremity with erythema, warmth complicated with this severe lymphedema. Patient does not appear septic at this time, ED provider wishes to admit for further evaluation and management. Allergies No Known Allergies Allergy (Verified 04/08/18 14:11) Home Medications: Meloxicam [Mobic*] 7.5 mg PO DAILY 05/13/13 Fluoxetine HCl [Prozac] 20 mg PO DAILY 12/27/15 Albuterol Sulfate [Ventolin Hfa] 1 puff NEB PRN PRN 04/19/19 dilTIAZem HCl [Diltiazem 24Hr ER (Cd)] 1 tab PO DAILY 04/19/19 Sulfamethoxazole/Trimethoprim [Bactrim Ds Tablet] 1 each PO BID #20 tablet 04/22/19 clindamycin HCL [Cleocin HCl] 300 mg PO TID #30 capsule 04/22/19 - Past Medical/Surgical History Diabetic: No -: HTN -: Asthma -: Arthritis -: Lymphedema -: Depression -: Cellulitis -: blood clot removal - in right upper leg, left foot about 16 yrs ago -: tonsillectomy -: appendectomy -: cholecystectomy -: skin removal after weight loss x 3 - PLASTIC SX -: Adenoidectomy Psychosocial/ Personal History: Patient currently lives alone and is disabled - Family History Father -: Heart disease, Hypertension, Diabetes Mother -: Heart disease, Other (see notes) Notes: arthritis - Social History Smoking Status: Never smoker Alcohol use: No CD- Drugs: No Caffeine use: No Place of Residence: Home Review of Systems General: Weakness, Malaise Integumentary: Rash, As per HPI Physical Examination - Vital Signs Temperature: 98.5 F Blood Pressure: 174/68 Pulse: 72 Respirations: 16 - Physical Exam General: Alert, In no apparent distress, Oriented x3, Obese HEENT: Atraumatic, PERRLA, Mucous membr. moist/pink, EOMI, Sclerae nonicteric Neck: Supple, 2+ carotid pulse no bruit, No LAD, Without JVD or thyroid abnormality Respiratory: Clear to auscultation bilaterally, Normal air movement Cardiovascular: Regular rate/rhythm, Normal S1 S2 Gastrointestinal: Normal bowel sounds, No tenderness Musculoskeletal: Erythema, Tenderness, Warmth Integumentary: Tenderness/swelling, Erythema, Warmth, Other (Severe lymphedema bilateral lower extremities) Neurological: Normal speech, Normal strength at 5/5 x4 extr, Normal tone, Normal affect - Studies Laboratory Data (last 24 hrs) 10/09/20 22:04: PT 13.1 H, INR 1.14 10/09/20 22:04: WBC 5.80, Hgb 11.1 L, Hct 35.0 L, Plt Count 214 10/09/20 22:04: Sodium 139, Potassium 4.2, BUN 19 H, Creatinine 0.56, Glucose 116 H, Magnesium 2.2, Total Bilirubin 0.2, AST 14 L, ALT 25, Alkaline Phosphatase 72 Assessment and Plan - Plan Assessment Cellulitis of the right lower extremity-failed outpatient therapy with Bactrim/clindamycin Generalize weakness/debility Hypertension Asthma Arthritis Depression Severe obesity with a BMI of 80.7 Plan Cellulitis of the right lower extremity-failed outpatient therapy with Bactrim/clindamycin complicated by severe lymphedema and severe obesity: Continue with vancomycin/cefepime, will need to obtain ultrasound of the right lower extremity to rule out DVT. Blood cultures obtained in the emergency department, will follow results. Anticipate clinical improvement in the next 48-72 hr at which time patient prefers to be discharged home with home health/physical therapy if this can be arranged. Patient does not prefer skilled placement at this time. Generalize weakness/debility: Physical therapy evaluation ordered, patient is morbidly obese and having difficulty getting around but reports on a day-to-day basis she uses either a walker or 2 canes, her mobility has declined over the course of the last week or 2. Patient will likely need home health/physical therapy at discharge. Appreciate further input from physical therapy. Hypertension: Obtain and continue home medications, appears stable this time Asthma: Obtain and continue home medications, appears stable this time Arthritis: Obtain and continue home medications, appears stable this time Depression: Obtain and continue home medications, appears stable this time Severe obesity with a BMI of 80.7: Discussed need for lifestyle changes, patient reports that she is not interested in any type of bariatric surgery. Discussed importance of weight loss in relation to general mobility, health. Discharge Plan: Home Plan to discharge in: 72 Hours - Advance Directives Does patient have a Living Will: No Does patient have a Durable POA for Healthcare: Yes - Code Status/Comfort Care Code Status Assessed: Yes (Full code) Critical Care: No Time Spent Managing Pts Care (In Minutes): 55
[2020-10-10] MEDS ORDERED: VANCOMYCIN/NS 1 gm 1 GM/250 ML BAG IVPB ONE (01:30)
[2020-10-10 01:31] VITALS: BMI 80.7
[2020-10-10] MEDS: GABAPENTIN 100 MG CAP PO SCH ×2 (01:45→08:24)
[2020-10-10] MEDS ORDERED: VANCOMYCIN 1 GM/VIAL ONE (02:14)
[2020-10-10] MEDS ORDERED: NA CHLORIDE 0.9% 250 ML ONE (02:15)
--- NOTE | 2020-10-10 04:32 | EKG ---
Test Date: 2020-10-09 Test Time: 22:15:35 Nuclear Officer: KEVYN MEASUREMENT RESULTS: Intervals: Rate: 65 ND: 190 QRSD: 104 QT: 430 QTc: 447 [place]: P: 72 ND: 190 QRS: 24 T: 54 INTERPRETIVE STATEMENTS: Normal sinus rhythm Normal ECG No previous ECG available for comparison Electronically Signed On 10-10-20 04:32:11 CDT by Rashard Esquivel
[2020-10-10] MEDS ORDERED: ALBUTEROL INHALER 60 PUFF/8 GM IH PRN (05:24)
[2020-10-10 06:10] LABS: Absolute Lymphocytes (CBC) 1.2 K/uL (0.7-4.9); Basophils % 0.4 % (0-1.3); Lymphocytes % 21.6 % (15.3-44.8); MPV 8.3 fL (7.6-11.3); RBC Red Blood Cell Count 3.68 M/uL (3.86-4.86)
[2020-10-10 07:23] LABS: ALT/SGPT 26 U/L (12-78); AST/SGOT 13 U/L (15-37); Albumin 2.9 g/dL (3.4-5.0); Alkaline Phosphatase 51 U/L (45-117); BUN Blood Urea Nitrogen 15 mg/dL (7-18); Bicarbonate 28 mmol/L (21-32); Bilirubin Total 0.3 mg/dL (0.2-1.0); Glucose Level 110 mg/dL (74-106); HDL Cholesterol 53 mg/dL (40-60); LDL Cholesterol, Calculated 76 (<130); Magnesium 2.2 mg/dL (1.8-2.4); Protein, Total 7.2 g/dL (6.4-8.2); Sodium Level 138 mmol/L (136-145)
--- NOTE | 2020-10-10 08:10 | RAD REPORT ---
EXAM DESCRIPTION: Delgado Single View10/09/2020 10:01 pm CLINICAL HISTORY: Leg swelling COMPARISON: 2018 FINDINGS: Upper lobe vessels are prominent indicative of pulmonary venous hypertension. The lungs appear clear of acute infiltrate. Heart is moderately enlarged
[2020-10-10] MEDS: FLUOXETINE 20 MG CAP PO SCH (08:22)
[2020-10-10] MEDS: DILTIAZEM HCL 180 MG SR CAP PO SCH (08:23)
[2020-10-10] MEDS: MELOXICAM 7.5 MG TAB PO SCH (08:23)
[2020-10-10] MEDS: ACETAMINOPHEN 500 MG TAB PO PRN ×2 (08:23→17:37)
[2020-10-10] MEDS: ENOXAPARIN 40 MG/0.4 ML SQ SCH (08:24)
[2020-10-10 08:59] LABS: Urine Appearance CLEAR; Urine Bilirubin NEGATIVE (NEG); Urine Blood NEGATIVE (NEG); Urine Color YELLOW; Urine Glucose NEGATIVE (NEG); Urine Protein NEGATIVE (NEG); Urine Specific Gravity 1.025 (1.005-1.030); Urine Urobilinogen 0.2 mg/dL (0.2-1.0)
[2020-10-10] MEDS: CEFEPIME/SWI 1gm 10 ML IV SCH ×2 (09:00→21:07)
[2020-10-10] MEDS ORDERED: CEFEPIME 1 GM/VIAL IV SCH (09:00)
--- NOTE | 2020-10-10 09:02 | P.PN ---
Subjective Date of Service: 10/10/20 Primary Care Provider: Dr. Ruiz Chief Complaint: Cellulitis RLE Subjective: Improving, Doing well Physical Examination - Vital Signs Temperature: 97.4 F Blood Pressure: 139/63 Pulse: 73 Respirations: 19 Pulse Ox (%): 95 - Studies Laboratory Data (last 24 hrs) 10/09/20 22:04: PT 13.1 H, INR 1.14 10/09/20 22:04: WBC 5.80, Hgb 11.1 L, Hct 35.0 L, Plt Count 214 10/09/20 22:04: Sodium 139, Potassium 4.2, BUN 19 H, Creatinine 0.56, Glucose 116 H, Magnesium 2.2, Total Bilirubin 0.2, AST 14 L, ALT 25, Alkaline Phosphatase 72 Microbiology Data (last 24 hrs): 10/09/20 21:56 Blood - Blood Anaerobic Blood Culture - Final 10/09/20 22:00 Blood - Blood Anaerobic Blood Culture - Final Assessment & Plan Discharge Plan: Other (Home with home health versus skilled placement) Plan to discharge in: 72 Hours Physician Review Additional Text: Physical exam: Patient alert, cooperative. Heart: Regular rate rhythm Lungs: Clear to auscultation Abdomen: Soft nontender nondistended. Patient morbidly obese. Large pannus noted. Extremities: Chronic lymphedema to the lower extremities bilateral. Some erythema, swelling noted to the right lower extremity with some erythema. Impression: Cellulitis of the right lower extremity-failed outpatient therapy with Bactrim/clindamycin Generalized weakness/debility Hypertension Asthma Arthritis Depression Severe obesity with a BMI of 80.7 Plan Cellulitis of the right lower extremity-failed outpatient therapy with Bactrim/clindamycin complicated by severe lymphedema and severe obesity: Continue with vancomycin/cefepime. Ultrasound of the lower extremity obtained to evaluate for DVT. Will also order echocardiogram due to her history of hypertension. Will consult physical therapy and occupational therapy to evaluate ambulation. Social work consulted to consider skilled placement if recommended by physical therapy or home with home health at discharge. DVT prophylaxis in place. Dietary consulted to address with help in weight loss. Will provide medication for pain. Anticipate improvement over the next 48-72 hr. Generalized weakness/debility: Physical therapy evaluation ordered aunt with occupational therapy. Patient is morbidly obese. She reports using a walker and cane. Await recommendations by physical therapy. Would consider skilled placement if physical therapy recommends. Patient amenable to skilled placement if needed. Hypertension: Obtain and restart home medication Asthma: Obtain and restart home medication. Maintain oxygen above 93%. Arthritis: Will provide medication for pain Depression: Obtain and continue home medications, appears stable this time Severe obesity with a BMI of 80.7: Address lifestyle modification education. Patient would benefit with bariatric surgery but she is not interested. Will consult dietary to help with weight loss. Time Spent Managing Pts Care (In Minutes): 55
[2020-10-10 09:30] LABS: Urine Microscopic Reflex NO UMIC
[2020-10-10] MEDS: MEDIHONEY 44 ML TOPICAL TUBE TOP SCH (11:00)
[2020-10-10] MEDS ORDERED: INFLUENZA VACCINE (for 3y+) 0.5 ML DOSE IMVAC ONE (11:00)
[2020-10-10] MEDS: VANCOMYCIN 2 GM in NA CHLORIDE 0.9% 500 ML IVPB SCH (14:10)
[2020-10-10] MEDS ORDERED: GABAPENTIN 100 MG CAP PO ONE (22:00)
[2020-10-11] MEDS: HYDROCODONE/APAP 5/325 MG TAB PO PRN ×3 (00:48→20:38)
[2020-10-11] MEDS: VANCOMYCIN 2 GM in NA CHLORIDE 0.9% 500 ML IVPB SCH ×2 (01:48→14:00)
[2020-10-11 07:25] LABS: ALT/SGPT 24 U/L (12-78); AST/SGOT 16 U/L (15-37); Albumin 2.9 g/dL (3.4-5.0); BUN Blood Urea Nitrogen 12 mg/dL (7-18); Bicarbonate 27 mmol/L (21-32); Bilirubin Total 0.3 mg/dL (0.2-1.0); Glucose Level 108 mg/dL (74-106); Magnesium 2.3 mg/dL (1.8-2.4); Potassium 4.6 mmol/L (3.5-5.1); Protein, Total 7.6 g/dL (6.4-8.2); Sodium Level 139 mmol/L (136-145)
[2020-10-11 07:31] LABS: Absolute Lymphocytes (CBC) 1.4 K/uL (0.7-4.9); Basophils % 0.9 % (0-1.3); Hematocrit 35.5 % (36.0-45.0); Lymphocytes % 23.1 % (15.3-44.8); MPV 8.7 fL (7.6-11.3); RBC Red Blood Cell Count 3.81 M/uL (3.86-4.86)
--- NOTE | 2020-10-11 07:47 | P.PN ---
Subjective Date of Service: 10/11/20 Primary Care Provider: Dr. Ruiz Chief Complaint: Cellulitis RLE Subjective: Improving, Doing well Physical Examination - Vital Signs Temperature: 97.4 F Blood Pressure: 148/65 Pulse: 76 Respirations: 17 Pulse Ox (%): 96 - Studies Microbiology Data (last 24 hrs): 10/09/20 22:00 Blood - Blood Anaerobic Blood Culture - Final 10/09/20 21:56 Blood - Blood Anaerobic Blood Culture - Final Assessment & Plan Discharge Plan: Home Plan to discharge in: 24 Hours Physician Review Additional Text: Physical exam: Patient alert, cooperative. Heart: Regular rate rhythm Lungs: Clear to auscultation Abdomen: Soft nontender nondistended. Patient morbidly obese. Large pannus noted. Extremities: Chronic lymphedema to the lower extremities bilateral. Erythema improved. Swelling still noted but improved. Impression: Cellulitis of the right lower extremity-failed outpatient therapy with Bactrim/clindamycin Generalized weakness/debility Hypertension Asthma Arthritis Depression Suspect obstructive sleep apnea Severe obesity with a BMI of 80.7 Plan Cellulitis of the right lower extremity-failed outpatient therapy with Bactrim/clindamycin complicated by severe lymphedema and severe obesity: Patient continues to improve. Continue IV vancomycin/cefepime. Ultrasound of the lower extremity obtained to evaluate for DVT. Will also order echocardiogram due to her history of hypertension. Continue with physical th erapy and occupational therapy to evaluate ambulation. Discharge plan of care address in detail. Will order home health and physical therapy at discharge. Social work to help with this. Anticipate discharge tomorrow. Generalized weakness/debility: Physical and occupational therapy consulted. Home health and physical therapy ordered for discharge. Hypertension: Continue home medication Asthma: Continue home medication. Maintain oxygen above 93%. Arthritis: Will provide medication for pain Depression: Continue home medications, appears stable this time Severe obesity with a BMI of 80.7: Address lifestyle modification education. Patient would benefit with bariatric surgery but she is not interested. Will consult dietary to help with weight loss. Suspect obstructive sleep apnea: Recommend sleep study to be done as an outpatient to further address. Time Spent Managing Pts Care (In Minutes): 55
[2020-10-11] MEDS: DILTIAZEM HCL 180 MG SR CAP PO SCH (09:41)
[2020-10-11] MEDS: ENOXAPARIN 40 MG/0.4 ML SQ SCH (09:43)
[2020-10-11] MEDS: GABAPENTIN 100 MG CAP PO SCH ×2 (09:44→20:24)
[2020-10-11] MEDS: MELOXICAM 7.5 MG TAB PO SCH (09:45)
[2020-10-11] MEDS: FLUOXETINE 20 MG CAP PO SCH (09:45)
[2020-10-11] MEDS: MEDIHONEY 44 ML TOPICAL TUBE TOP SCH (09:49)
[2020-10-11] MEDS: CEFEPIME/SWI 1gm 10 ML IV SCH ×2 (09:49→20:25)
--- NOTE | 2020-10-11 10:36 | ECHO ---
HEIGHT: 5 ft 6 in WEIGHT: 500 lb 8 oz DATE OF STUDY: 10/10/[address]: Henri Schneider DO 2-DIMENSIONAL: YES M.MODE: YES DOPPLER: YES COLOR FLOW: YES TDS: PORTABLE: DEFINITY: BUBBLE STUDY: DIAGNOSIS: HYPERTENSION, CHRONIC LYMPHEDEMA CARDIAC HISTORY: CATHERIZATION: NO SURGERY: NO PROSTHETIC VALVE: NO PACEMAKER: NO MEASUREMENTS (cm) DIASTOLIC (NORMALS) SYSTOLIC (NORMALS) IVSd 1.1 (0.6-1.2) LA Diam 3.9 (1.9-4.0) LVEF 59% LVIDd 4.5 (3.5-5.7) LVIDs 3.1 (2.0-3.5) %FS 31% LVPWd 1.2 (0.6-1.2) Ao Diam 3.2 (2.0-3.7) 2 DIMENSIONAL ASSESSMENT: RIGHT ATRIUM: NORMAL LEFT ATRIUM: NORMAL RIGHT VENTRICLE: NORMAL LEFT VENTRICLE: NORMAL TRICUSPID VALVE: NORMAL MITRAL VALVE: NORMAL PULMONIC VALVE: NORMAL AORTIC VALVE: NORMAL PERICARDIAL EFFUSION: NONE AORTIC ROOT: NORMAL LEFT VENTRICULAR WALL MOTION: DOPPLER/COLOR FLOW: COMMENTS: NORMAL 2-DIMENSIONAL ECHOCARDIOGRAM WITH DOPPLER. NO WALL MOTION ABNORMALITY. NO EFFUSION. TECHNOLOGIST: GABRIEL TOVAR
[2020-10-11 12:24] VITALS: O2SAT 98
[2020-10-11] MEDS ORDERED: VANCOMYCIN 2 GM in NA CHLORIDE 0.9% 500 ML IVPB SCH (21:00)
[2020-10-12 06:56] LABS: Absolute Lymphocytes (CBC) 1.1 K/uL (0.7-4.9); Hematocrit 35.4 % (36.0-45.0); Lymphocytes % 20.9 % (15.3-44.8); MPV 8.2 fL (7.6-11.3); RBC Red Blood Cell Count 3.85 M/uL (3.86-4.86)
[2020-10-12 06:58] LABS: ALT/SGPT 28 U/L (12-78); AST/SGOT 21 U/L (15-37); BUN Blood Urea Nitrogen 12 mg/dL (7-18); Bicarbonate 31 mmol/L (21-32); Bilirubin Total 0.3 mg/dL (0.2-1.0); Glucose Level 114 mg/dL (74-106); Magnesium 2.3 mg/dL (1.8-2.4); Potassium 4.4 mmol/L (3.5-5.1); Protein, Total 7.7 g/dL (6.4-8.2); Sodium Level 139 mmol/L (136-145)
[2020-10-12 07:22] LABS: Alkaline Phosphatase ND U/L (45-117)
--- NOTE | 2020-10-12 08:09 | P.DS ---
Admission Date: 10/09/20 Discharge Date: 10/12/20 Primary Care Provider: Dr. Ruiz Disposition: DC HOME/HOME HEALTH CARE Discharge Condition: GOOD Reason for Admission: Cellulitis RLE Consultations: none Procedures: COVID: Negative CXR: COMPARISON: 2018 FINDINGS: Upper lobe vessels are prominent indicative of pulmonary venous hypertension. The lungs appear clear of acute infiltrate. Heart is moderately enlarged ECHO: MEASUREMENTS (cm) DIASTOLIC (NORMALS) SYSTOLIC (NORMALS) IVSd 1.1 (0.6-1.2) LA Diam 3.9 (1.9-4.0) LVEF 59% LVIDd 4.5 (3.5-5.7) LVIDs 3.1 (2.0-3.5) %FS 31% LVPWd 1.2 (0.6-1.2) Ao Diam 3.2 (2.0-3.7) 2 DIMENSIONAL ASSESSMENT: RIGHT ATRIUM: NORMAL LEFT ATRIUM: NORMAL RIGHT VENTRICLE: NORMAL LEFT VENTRICLE: NORMAL TRICUSPID VALVE: NORMAL MITRAL VALVE: NORMAL PULMONIC VALVE: NORMAL AORTIC VALVE: NORMAL PERICARDIAL EFFUSION: NONE AORTIC ROOT: NORMAL LEFT VENTRICULAR WALL MOTION: DOPPLER/COLOR FLOW: COMMENTS: NORMAL 2-DIMENSIONAL ECHOCARDIOGRAM WITH DOPPLER. NO WALL MOTION ABNORMALITY. NO EFFUSION. Medical problem list: Cellulitis of the right lower extremity-failed outpatient therapy with Bactrim/clindamycin Generalized weakness/debility Hypertension Asthma Arthritis Depression Suspect obstructive sleep apnea Severe obesity with a BMI of 80.7 Brief History of Present Illness: 52-year-old female with history of hypertension, asthma, arthritis, depression presents emergency department for cellulitis of the right lower extremity. Patient was previously on Bactrim, clindamycin for the past 4 days with worsening of the cellulitis to the right lower extremity. Patient with severe obesity with a BMI of 80.7, severe lymphedema bilateral lower extremities. Right lower extremity with erythema, warmth complicated with this severe lymphedema. Patient does not appear septic at this time, ED provider wishes to admit for further evaluation and management. Hospital Course: Patient presented with Cellulitis of the right lower extremity who failed outpatient therapy on Bactrim and clindamycin. This was complicated with patient having history of severe lymphedema and severe morbid obesity with BMI of 80. Patient was admitted for IV antibiotic treatment. Patient's condition improved with IV vancomycin and cefepime. Echocardiogram unremarkable. At discharge patient without significant pain with a walker. Wound care evaluated patient and recommended therapy-medihoney daily. At discharge patient will continue with wound care as directed by specialist. Home health will be arranged prior to discharge. At discharge she will continue with Augmentin 500 mg 1 pill twice daily and doxycycline 100 mg 1 pill twice daily for 10 days. Recommend for [facility] 1 [facility]. Patient made need transportation to [facility] due to her morbid obesity. Home health may be able to help with this issue. Education on cellulitis provided. Fall precautions in place. Patient with generalized weakness due to her morbid obesity. Patient also with arthritis due to her obesity. Patient will continue with home health at discharge. Patient declined any physical therapy.Patient uses walker at home. Fall precautions in place. Patient may continue with meloxicam 7.5 mg daily as needed for pain. This may need to be limited due to her hypertension and side effect profile of meloxicam causing gastritis. Education will be provided. Patient with hypertension. This appears stable. At discharge she will continue with current medication-diltiazem ER 300 mg daily and aspirin 81 mg daily. Maintain blood pressure less than 130/80. Further adjustment can be done by her PCP. Patient with asthma. She remained stable at this time. At discharge she will continue with her current medication-albuterol 2 puffs 3 times a day as needed for shortness of breath. If this persists patient may require long-acting maintenance medication. This can be further addressed with pulmonology or her PCP. Patient with depression. Patient will continue with her current medication- Prozac 20 mg daily. Patient with severe obesity with BMI of 80.7. Lifestyle modification education addressed. Fall precaution in place. Patient would benefit with bariatric surgery. Will provide education on this. Patient likely with underlying obstructive sleep apnea. Recommend evaluation as an outpatient. This can be done with the help of her PCP. Vital Signs/Physical Exam: Temp Pulse Resp BP Pulse Ox 96.2 F L 65 17 159/72 H 98 10/12/20 04:00 10/12/20 04:00 10/12/20 04:00 10/12/20 04:00 10/12/20 04:00 General: Alert, In no apparent distress, Oriented x3, Cooperative HEENT: Atraumatic Neck: Supple Respiratory: Clear to auscultation bilaterally, Normal air movement Cardiovascular: Regular rate/rhythm Gastrointestinal: Normal bowel sounds, No tenderness, No masses, No rebound, No guarding, Other (Morbid obesity. Large pannus noted.) Integumentary: No tenderness/swelling, Other (No significant erythema to the right lower extremity. Chronic lymphedema noted bilateral.) Neurological: Normal speech, Normal strength at 5/5 x4 extr, Normal tone, Normal affect Laboratory Data at Discharge: WBC 5.40 K/uL (4.3-10.9) 10/12/20 06:15 Hgb 11.5 g/dL (12.0-15.0) L 10/12/20 06:15 Hct 35.4 % (36.0-45.0) L 10/12/20 06:15 Plt Count 202 K/uL (152-406) 10/12/20 06:15 PT 13.1 SECONDS (9.5-12.5) H 10/09/20 22:04 INR 1.14 10/09/20 22:04 Sodium 139 mmol/L (136-145) 10/12/20 06:15 Potassium 4.4 mmol/L (3.5-5.1) 10/12/20 06:15 BUN 12 mg/dL (7-18) 10/12/20 06:15 Creatinine 0.51 mg/dL (0.55-1.3) L 10/12/20 06:15 Glucose 114 mg/dL (74-106) H 10/12/20 06:15 Magnesium 2.3 mg/dL (1.8-2.4) 10/12/20 06:15 Total Bilirubin 0.3 mg/dL (0.2-1.0) 10/12/20 06:15 AST 21 U/L (15-37) 10/12/20 06:15 ALT 28 U/L (12-78) 10/12/20 06:15 Alkaline Phosphatase ND 10/12/20 06:15 Triglycerides 54 mg/dL (<150) 10/10/20 05:23 Cholesterol 140 mg/dL (<200) 10/10/20 05:23 HDL Cholesterol 53 mg/dL (40-60) 10/10/20 05:23 Cholesterol/HDL Ratio 2.64 10/10/20 05:23 Home Medications: Meloxicam [Mobic*] 7.5 mg PO DAILY 05/13/13 Fluoxetine HCl [Prozac] 20 mg PO DAILY 12/27/15 Albuterol Sulfate [Ventolin Hfa] 1 puff NEB PRN PRN 04/19/19 dilTIAZem HCl [Diltiazem 24Hr ER (Cd)] 1 tab PO DAILY 04/19/19 Amox/Clavulanate [Augmentin 500-125 mg Tab] 500 mg PO BID #20 tab 10/12/20 Aspirin [Aspirin EC 81 MG] 81 mg PO DAILY #30 tablet. 10/12/20 Doxycycline Hyclate 100 mg PO BID #20 tablet 10/12/20 Folic Acid 1 mg PO DAILY #90 tablet 10/12/20 Medihoney [Medihoney Woundcare Gel*] 1 appl TOP DAILY #1 tube 10/12/20 New Medications: Aspirin [Aspirin EC 81 MG] 81 mg PO DAILY #30 tablet. Amox/Clavulanate [Augmentin 500-125 mg Tab] 500 mg PO BID #20 tab Doxycycline Hyclate 100 mg PO BID #20 tablet Folic Acid 1 mg PO DAILY #90 tablet Medihoney [Medihoney Woundcare Gel*] 1 appl TOP DAILY #1 tube Physician Discharge Instructions: Patient presented with Cellulitis of the right lower extremity who failed outpatient therapy on Bactrim and clindamycin. This was complicated with patient having history of severe lymphedema and severe morbid obesity with BMI of 80. Patient was admitted for IV antibiotic treatment. Patient's condition improved with IV vancomycin and cefepime. Echocardiogram unremarkable. At discharge patient without significant pain with a walker. Wound care evaluated patient and recommended therapy-medihoney daily. At discharge patient will continue with wound care as directed by specialist. Home health will be arranged prior to discharge. At discharge she will continue with Augmentin 500 mg 1 pill twice daily and doxycycline 100 mg 1 pill twice daily for 10 days. Recommend for patient to [facility] within 1 week. Patient made need transportation to [facility] due to her morbid obesity. Home health may be able to help with this issue. Education on cellulitis provided. Fall precautions in place. Patient with generalized weakness due to her morbid obesity. Patient also with arthritis due to her obesity. Patient will continue with home health at discharge. Patient declined any physical therapy.Patient uses walker at home. Fall precautions in place. Patient may continue with meloxicam 7.5 mg daily as needed for pain. This may need to be limited due to her hypertension and side ef fect profile of meloxicam causing gastritis. Education will be provided. Patient with hypertension. This appears stable. At discharge she will continue with current medication-diltiazem ER 300 mg daily and aspirin 81 mg daily. Maintain blood pressure less than 130/80. Further adjustment can be done by her PCP. Patient with asthma. She remained stable at this time. At discharge she will continue with her current medication-albuterol 2 puffs 3 times a day as needed for shortness of breath. If this persists patient may require long-acting maintenance medication. This can be further addressed with pulmonology or her PCP. Patient with depression. Patient will continue with her current medication- Prozac 20 mg daily. Patient with severe obesity with BMI of 80.7. Lifestyle modification education addressed. Fall precaution in place. Patient would benefit with bariatric surgery. Will provide education on this. Patient likely with underlying obstructive sleep apnea. Recommend evaluation as an outpatient. This can be done with the help of her PCP. Diet: AHA Activity: Fall precautions Followup: Unknown,U [Primary Care Provider] - Time spent managing pt's care (in minutes): 55
[2020-10-12 09:16] VITALS: BP 154/73; TEMP 97.4
[2020-10-12] MEDS: GABAPENTIN 100 MG CAP PO SCH (09:53)
[2020-10-12] MEDS: CEFEPIME/SWI 1gm 10 ML IV SCH (09:54)
[2020-10-12] MEDS: FLUOXETINE 20 MG CAP PO SCH (09:54)
[2020-10-12] MEDS: MELOXICAM 7.5 MG TAB PO SCH (09:54)
[2020-10-12] MEDS: HYDROCODONE/APAP 5/325 MG TAB PO PRN (09:54)
[2020-10-12] MEDS: DILTIAZEM HCL 180 MG SR CAP PO SCH (09:54)
== END 2020-10-12 10:00 | disposition home health service (06) | DRG 603 ==
LOC: ER 20:08 → ERHOLD 23:22 → 2ND 10-10 00:08
PROVIDERS: ADMIT Family Medicine; ATTEND Family Medicine
DX: L03.115 Cellulitis of right lower limb (principal); Z68.45 Body mass index [BMI] 70 or greater, adult; E66.01 Morbid (severe) obesity due to excess calories; F32.9 Major depressive disorder, single episode, unspecified; M19.90 Unspecified osteoarthritis, unspecified site; G47.33 Obstructive sleep apnea (adult) (pediatric); I10 Essential (primary) hypertension; J45.909 Unspecified asthma, uncomplicated; R53.1 Weakness; R53.81 Other malaise; Z88.1 Allergy status to other antibiotic agents; Z60.2 Problems related to living alone; Z79.899 Other long term (current) drug therapy; Z90.49 Acquired absence of other specified parts of digestive tract; Z20.822 Contact with and (suspected) exposure to COVID-19
CPT/HCPCS: 36415; 71045; 80048; 80053; 80061; 80076; 80202; 81003; 83605; 83735; 84145; 84439; 84443; 85025; 85610; 87040; 93005; 93306; 97161; 97165; 99251; 99285; J0692; J1650; J3370; J7040; J7050; U0003